=== PATIENT | male | born 1980 | race Hispanic/Latino ===

== ENCOUNTER → 2023-05-26 | Outpatient (CLI) | payer OTHER | END | disposition home or self-care (01) | LOC: RAH 13:10 | PROVIDERS: ATTEND Student in an Organized Health Care Education/Training Program | DX: R20.2 Paresthesia of skin (principal) | CPT/HCPCS: 73221 ==

== ENCOUNTER 2024-06-20 05:57 | Day surgery (SDC) | payer OTHER ==
[2024-06-15 08:12] LABS: BASOPHILS # (AUTO) 0.04 K/uL (0.00-0.20); BASOPHILS % (AUTO) 0.6 % (0.0-5.0); EOSINOPHILS # (AUTO) 0.14 K/uL (0.00-0.70); EOSINOPHILS % (AUTO) 2.3 % (0.0-8.0); HEMATOCRIT 47.7 % (42-54); IMMATURE GRANULOCYTE ABSOLUTE 0.02 K/uL (0-1); LYMPHOCYTES # (AUTO) 1.8 K/uL (1.0-4.8); LYMPHOCYTES % (AUTO) 29.2 % (21.0-51.0); MEAN CORPUSCULAR HEMOGLOBIN 30.3 pg (27.0-33.0); MEAN CORPUSCULAR HGB CONC 33.8 g/dL (32.0-36.0); MEAN CORPUSCULAR VOLUME 89.7 fL (79-99); MONOCYTES # (AUTO) 0.5 K/uL (0.1-1.0); MONOCYTES % (AUTO) 7.9 % (3.0-13.0); NEUTROPHILS # (AUTO) 3.7 K/uL (1.8-7.7); NEUTROPHILS % (AUTO) 59.7 % (40.0-77.0); PLATELET COUNT (AUTO) 271 K/uL (130-400); RED BLOOD CELL COUNT(AUTO) 5.32 MIL/uL (4.50-6.20); RED CELL DISTRIBUTION WIDTH 12.3 % (11.0-15.5); WHITE BLOOD COUNT (AUTO) 6.2 K/uL (4.8-10.8)
--- NOTE | 2024-06-15 08:18 | EKG ---
[facility] Test Date: 2024-06-15 Test Time: 08:57:14 Pat Name: IDRIS THOMAS Department: [facility] Room: Gender: M Documentation Manager: [id number] : 1980 Requested By: WILFRID GAR Order Number: [id number] Reading MD: Vega Mckeon Measurements Intervals Melvin Rate: 66 P: 16 HI: 176 QRS: 22 QRSD: 95 T: 27 QT: 399 QTc: 417 Interpretive Statements Sinus rhythm Compared to ECG 06/24/2015 13:36:54 No significant changes Electronically Signed On 06-15-2024 17:40:10 INVESTMENT SALES ASSISTANT by Vega Mckeon Please click the below link to view image of tracing.
[2024-06-15 08:28] LABS: POTASSIUM 4.5 mmol/L (3.5-5.1)
[2024-06-15 08:31] LABS: PROTHROMBIN TIME 11.2 SEC (9.6-11.6)
[2024-06-15 08:33] LABS: PARTIAL THROMBOPLASTIN TIME 29.1 SEC (26.3-35.5)
[2024-06-15 08:55] VITALS: BP 114/71; PULSE 65; RESP 18; TEMP 98.4
[~2024-06-20] VITALS: Ht 182.9 cm; Wt 98.8 kg
[2024-06-20] VITALS (18 sets, daily range): BP systolic 113–135; BP diastolic 63–90; PULSE 57–68; RESP 14–24; TEMP 97.5–98.4
[~2024-06-20 05:57] MED LIST: LEVE-43 PO
[2024-06-20] MEDS: ceFAZolin SODIUM 2 GM VIAL ONE (06:15)
[2024-06-20] MEDS: acetaMINOPHEN 100 ML ONE (07:00)
[2024-06-20] MEDS: FAMOTIDINE 20MG VIAL IV ONE (07:00)
[2024-06-20] MEDS ORDERED: ketaMINE 50MG/ML SYRINGE 50 MG/ML DISP.SYRIN ONE (07:02)
[2024-06-20] MEDS ORDERED: FENTanyl CITRate PF 50 MCG/1 ML 2ML VIAL ONE (07:03)
[2024-06-20] MEDS ORDERED: LIDOCAINE PF 100MG/5ML (2%) SYRINGE 5ML ONE (07:03)
[2024-06-20] MEDS ORDERED: rocuRONium bROMide 10MG/1ML 5ML VL ONE ×2 (07:03→08:23)
[2024-06-20] MEDS ORDERED: proPOFol 10 MG/ML 20ML VIAL IV ONE (07:03)
[2024-06-20] MEDS: ceFAZolin SODIUM 2 GM VIAL IVPB ONE (08:13)
[2024-06-20] MEDS: LACTATED RINGERS 1000ML 1,000 ML IV ONE (08:17)
[2024-06-20] MEDS ORDERED: dexaMETHasone SOD PHOSPHATE 10MG/ML 1ML VIAL ONE (08:19)
[2024-06-20] MEDS ORDERED: MIDAZOLAM HCL 1 MG/ML 2ML VIAL ONE (08:19)
[2024-06-20] MEDS ORDERED: ondanSETRON 4MG INJ ONE (08:19)
[2024-06-20] MEDS ORDERED: NEOSTIGMINE METHYLSULFATE 1MG/ML IV ONE (08:59)
[2024-06-20] MEDS ORDERED: GLYCOPYRROLATE 0.2 MG/ML 5 ML VIAL ONE (08:59)
[2024-06-20] MEDS: ketOROlac 30MG VIAL (30MG/ML) ONE (10:07)
[2024-06-20] MEDS: hydroMORPHone 1 MG INJ ONE (10:08)
--- NOTE | 2024-06-20 13:04 | OP ---
Operative Note: DATE OF PROCEDURE: 06/20/24 SURGEON: WILFRID GAR MD SPINNER CAP FRAME: [Please review operative record] ANESTHESIA: [general and local] ANESTHESIOLOGIST/STRAINER TENDER: [please review operative record] PREOPERATIVE DIAGNOSIS: [gallbladder disease, chronic cholecystitis] POSTOPERATIVE DIAGNOSIS: [same] SYNOPSIS: [chronically inflamed gallbladder, successfully extirpated] PROCEDURE: [robotic assisted laparoscopic cholecystectomy] ESTIMATED BLOOD LOSS: [10 ccs] INDICATIONS: [44 yo male with chronic RUQ postprandial pain. Found to have chronic cholecystitis on imaging. Failed conservative management with dietary modifications and analgesics. Recommendation was given for cholecystectomy. Risk, benefits, alternatives were discussed. All questions were answered. Patient agreed to proceed.] DESCRIPTION OF PROCEDURE: [After proper consent was obtained, the patient was taken to the operating room and placed in the supine position on the operating table. General endotracheal anesthesia was then induced. The patients abdomen was sterilely prepped and draped in the standard surgical fashion. Through a subcostal incision, Veress needle was inserted into the peritoneal cavity. Insufflation was allowed to 12 mmHg. Through a supraumbilical incision, 8mm trocar and laparoscope were inserted in to the peritoneal cavity. Veress needle and its vicinity were examined with no signs of injury. Additional working trocars were placed under direct visualization. Patient was positioned at 20 reverse Trendelenburg. Da Jesus robot was docked. Gallbladder was examined, it appeared chronically inflamed. Gallbladder fundus was grasped and retracted cephalad. Infundibulum was grasped and retrated medially and laterally to accomplish my dissection. At this time, Calots triangle was dissected using a combination of blunt dissection and electrocautery. the cystic duct wall and cystic artery were circumferentially dissected. the cystic duct was then doubly clipped and ligated. The cystic artery was then dissected free and also doubly clipped and also ligated. The gallbladder was then taken off its peritoneal attachment with bipolar energy off the gallbladder bed fossa. Hemostasis was obtained. Da Jesus robot was undocked. The gallbladder was then removed with an EndoCatch bag through an 8mm port. The port of this fascia was closed with 0 Vicryl suture through a suture passer. Final inspection revealed no leakage of bile and adequate hemostasis. The abdomen was then allowed to collapse. All skin incisions were closed with 4- 0 Monocryl in running subcuticular fashion. The incisions were covered with Dermabond. The patient was awoken from anesthesia and transported to the recovery room in good condition. All instrument, sponge, and needle counts were correct at the end of the case.] WILFRID GAR MD Jun 20, 2024 13:04
--- NOTE | 2024-06-20 13:17 | DS ---
Discharge Summary Hospital Course Patient is a 44 yo male admitted from the outpatient setting for elective robotic assisted laparoscopic cholecytectomy on 06/20/24 for chronic cholecystitis. No issues during the procedure. Patient tolerated the procedure well. No major concerns at this time. Pt with pain well controlled. Remains hemodynamically stable, afebrile. Aerating well on room air. Normal sinus rhythm. Abdomen benign. Incisions c/d/i. Appropriately tender to palpation . No rebound or guarding. Meeting discharge criteria Pt will f/u in clinic in 7-10 days. Avoid lifting >20lbs for 1 month. Advance diet as tolerated. Post op medications have been submitted to the pt's pharmacy. Return precautions discussed: fevers or 101.5 or higher, worsening abdominal pain, intractable nausea or vomiting, or just any concerns about his overall health. WILFRID GAR MD Jun 20, 2024 13:17
== END 2024-06-20 11:25 | disposition home or self-care (01) ==
LOC: DAH 05:57
PROVIDERS: ATTEND Surgery
DX: K81.1 Chronic cholecystitis (principal); K82.9 Disease of gallbladder, unspecified; N18.9 Chronic kidney disease, unspecified; Z98.890 Other specified postprocedural states
CPT/HCPCS: 93005; 47562; 80048; 85025; 85610; 85730; 86850 ×2; 86900 ×2; 86901 ×2; 36415 ×2; 88304; A4223 ×2; A4600; S2900; A6260; A4663; J7030; J7120 ×2; A4215 ×2; J3490 ×5; J3010; J1171; J1100; J0665; J2003; J2250; J2704; J2405; J1885; J2710; J0690 ×2; A4930; A4213; A4222; A4221; A4216